=== PATIENT | male | born 2000 | race Hispanic/Latino ===

== ENCOUNTER 2022-02-09 00:53 | Emergency (ER) | payer SELFPAY ==
[~2022-02-09] VITALS: Ht 177.8 cm; Wt 127.0 kg
[2022-02-09] MEDS ORDERED: DOXYCYCLINE HY100 MG PO (01:00)
== END 2022-02-09 01:05 | disposition home or self-care (01) ==
LOC: ER 01:00
DX: L73.9 Follicular disorder, unspecified (principal); R50.9 Fever, unspecified
CPT/HCPCS: 99282

== ENCOUNTER 2024-05-07 08:51 | Emergency (ER) | payer SELFPAY ==
[~2024-05-07] VITALS: Ht 177.8 cm; Wt 155.2 kg
[~2024-05-07 08:51] MED LIST: DOXYCYCLINE HY100 MG PO
[2024-05-07 08:55] VITALS: PULSE 89; RESP 16; TEMP 98.2
[2024-05-07 10:28] VITALS: BP 140/79; PULSE 70; RESP 16; TEMP 98.4; O2SAT 98
== END 2024-05-07 10:25 | disposition home or self-care (01) ==
LOC: FSED 09:07
DX: R07.89 Other chest pain (principal); R59.0 Localized enlarged lymph nodes; R60.9 Edema, unspecified
CPT/HCPCS: 71046; 93005; 99283

== ENCOUNTER 2024-05-13 07:43 | Emergency (ER) | payer SELFPAY ==
[~2024-05-13] VITALS: Ht 177.8 cm; Wt 155.1 kg
[2024-05-13 07:50] VITALS: PULSE 76; RESP 16; TEMP 98.7; O2SAT 100
== END 2024-05-13 08:40 | disposition home or self-care (01) ==
LOC: ER 07:57
DX: R59.1 Generalized enlarged lymph nodes (principal)
CPT/HCPCS: 99283